=== PATIENT | female | born 1940 | race Caucasian/White ===

== ENCOUNTER 2016-09-27 15:22 | Emergency (ER) | payer OTHER, MEDICARE ==
[~2016-09-27] VITALS: Ht 160 cm; Wt 84.9 kg
[~2016-09-27 15:22] MED LIST: ASPEC81 PO; LEVO100T48; LISI1TAB3 PO; MULT-506 PO; OXYC-57 PO
[2016-09-27 15:24] VITALS: TEMP 36.6; Ht 160 cm; Wt 84.9 kg
[2016-09-27] MEDS ORDERED: ACETAMINOPHEN 500 MG TAB PO STA (15:43)
--- NOTE | 2016-09-27 16:15 | DIAGNOSTIC IMAGING REPORT ---
RIGHT SHOULDER MIN 2 VIEWS ROUTINE CLINICAL HISTORY: Right shoulder and arm pain following fall. COMPARISON: None FINDINGS: Alignment of the right acromioclavicular and glenohumeral joints is anatomic. There is a partially visualized oblique mildly displaced fracture of the midshaft of the right humerus that is displaced 7 mm. Right axilla surgical clips are noted. IMPRESSION: Acute mildly displaced oblique fracture of the proximal to mid shaft of the right humerus. Electronically signed by: Callum Shah M.D. 09/27/2016 4:13 PM Dictated Date/Time: 09/27/2016 4:12 PM
--- NOTE | 2016-09-27 16:16 | DIAGNOSTIC IMAGING REPORT ---
RIGHT HUMERUS MIN 2 VIEWS ROUTINE CLINICAL HISTORY: Right upper arm pain following fall. COMPARISON: None FINDINGS: There is an acute mildly displaced fracture of the proximal to mid shaft of the right humerus. No additional fractures are identified. There are right axillary/breast surgical clips. IMPRESSION: Acute mildly displaced oblique fracture of the proximal to mid shaft of the right humerus. Electronically signed by: Callum Shah M.D. 09/27/2016 4:14 PM Dictated Date/Time: 09/27/2016 4:13 PM
[2016-09-27] MEDS ORDERED: CHOL2000 PO (16:40)
[2016-09-27] MEDS ORDERED: LEVO100T7 PO (16:40)
[2016-09-27] MEDS ORDERED: LISI1TAB3 PO (16:40)
[2016-09-27] MEDS ORDERED: B-COTAB18 PO (16:40)
[2016-09-27] MEDS ORDERED: GLUCTAB7 PO (16:40)
[2016-09-27] MEDS ORDERED: ACET1TAB84 PO (16:40)
[2016-09-27] MEDS ORDERED: MULT-845 PO (16:40)
[2016-09-27] MEDS ORDERED: OXYC-57 PO (16:45)
[2016-09-27 17:29] VITALS: BP 137/78; PULSE 78; O2SAT 92
--- NOTE | 2016-09-28 16:31 | EMERGENCY ROOM VISIT NOTE ---
ED Visit Note First contact with patient: 15:27 I have personally seen and evaluated the patient with the PA. I agree with the diagnosis and management decisions and have been personally involved in the case. Please see Michael Francis PA-C's notes for further details of the history, physical and visit.
--- NOTE | 2016-09-30 06:17 | EMERGENCY ROOM VISIT NOTE ---
ED Visit Note First contact with patient: 15:27 Chief Complaint: I think I broke my right upper arm. History of Present Illness: Ms. Perdomo is a 76-year-old white female who ambulates into the ED accompanied by her complaining of right humerus pain. Patient reports approximate 30 minutes ago she was using a sweeper to clean her floor. She reports she fell over the sweeper and onto her right humerus. She reports at the time of the fall she did feel and heard a snapping sensation of the humerus. Since that time she reports she is having mid pain. She does report before the fall she was not having any lightheadedness or dizziness, the time of the fall she did not strike her head or have loss of consciousness and since the injury she has had no signs of head injury. Currently she is complaining of a sharp pain over the mid right humerus area. She rates this discomfort 3/10. The pain is nonradiating. The pain worsens with palpation, all movements of the shoulder and all movements of the elbow and forearm. She has not identified any alleviating factors related to the pain. Associated with the pain she does report she has an achy sensation over the humeral head. She denies any associated neck and back pain, chest pain, shortness of breath, abdominal pain, nausea, vomiting, right upper extremity weakness/numbness/tingling. She also denies any previous significant injuries or surgeries to the right upper extremity. Review of Systems: As noted above in history of present illness. Past Medical History: Hypothyroidism, hypertension. Current Medications: Medications Dose Route/Sig Max Daily Dose Days Date Category Dose Instructions Vitamin B Complex (B-Complex Vitamins) 1 Tab Tab 1 Tab PO DAILY 09/27/16 Reported Centrum Silver Adult 50+ (Multiple Vitamins W/ Minerals) 1 Tab Tab 1 Tab PO DAILY 09/27/16 Reported Vitamin D3 (Cholecalciferol) 2,000 Unit Cap 2,000 Inter.unit PO DAILY 09/27/16 Reported Glucosamine Chondroitin (Bwdyzbfsrgm-Nfjvockklju-Ubk C-) 1 Tab Tab 1 Tab PO DAILY 09/27/16 Reported Tylenol Arthritis Ext Rel (Acetaminophen) 650 Mg Cplt 650 Mg PO HS 09/27/16 Reported Levothyroxine Sodium 100 Mcg Tab 100 Mcg PO DAILY 09/27/16 Reported Zestril (Lisinopril) 30 Mg Tab 30 Mg PO DAILY 09/27/16 Reported Allergies to Medications: Clindamycin, levofloxacin. Social History: Patient is currently retired; she lives with her and feels safe in her home environment; he denies tobacco use. Physical Examination: Vital Signs: Date Time Temp Pulse Resp B/P Pulse Ox O2 Delivery O2 Flow Rate FiO2 09/27/16 17:29 78 18 91/50 92 Room Air 137/78 09/27/16 15:24 36.6 87 16 104/69 97 GENERAL: 76-year-old female in mild distress due to pain, nontoxic-appearing, afebrile and hemodynamically stable. NEUROLOGICAL: Awake, alert and oriented to person, place and time. Answering questions appropriately and following commands. Normal gait. No focal motor sensory deficits. SKIN: Warm, dry and pink. No soft tissue trauma noted. HEENT: Atraumatic and normocephalic. BACK: No tenderness over the bony cervical and thoracic spine. THORAX: Lungs sounds are clear to auscultation and equal bilaterally with symmetrical chest wall. No crepitus, tenderness, subcutaneous air or deformities noted. RIGHT UPPER EXTREMITY: No gross bony deformity. No tenderness over the humeral head, clavicle or scapula. Moderate tenderness in the mid humeral area associated with mild swelling but no ecchymosis. No tenderness throughout the elbow or forearm. Range of motion was deferred. She was able to distinguish light sensations through all dermatomes of the arm. Distal pulses and capillary refill is brisk. ED Course: Patient is assessed as noted above. Patient was offered pain medication and requested 1 g of Tylenol by mouth. Right Humerus X-Rays: Were read by myself and the radiologist showing acutely mildly displaced fracture of the proximal to mid shaft of the right humerus. Right Shoulder X-Rays: Were read by myself and shows proper alignment of the right acromioclavicular and glenohumeral joints. Patient was placed in an Ortho-Glass splint and sling. Patient's case was reviewed with Dr. Hull; she independently assessed the patient where agreed on diagnostic approach, treatment, disposition and plan. Patient was educated about tonight's findings and instructed on her treatment plan; she verbalizes understanding and agreement with this plan. Clinical Impression: Right humerus fracture. Disposition: Patient discharged home in stable condition accompanied by her ; prior to departure she was reassessed and subjectively rated her discomfort 4/10. Plan: Comfort measures including rest, splint and sling use, ice and a sliding pain medication scale of ibuprofen, acetaminophen and Percocet were discussed with the patient. Patient was encouraged to follow-up with Dr. Haro's office for definitive care and treatment. Patient was encouraged return the ED for worsening/uncontrolled pain, arm weakness/numbness/tingling or any new/concerning symptoms.
== END 2016-09-27 17:29 | disposition home or self-care (01) ==
LOC: C.EDB 15:24 → C.EDD 17:29
DX: S42.291A Other displaced fracture of upper end of right humerus, initial encounter for closed fracture (principal); E03.9 Hypothyroidism, unspecified; I10 Essential (primary) hypertension; W01.0XXA Fall on same level from slipping, tripping and stumbling without subsequent striking against object, initial encounter; Y93.E5 Activity, floor mopping and cleaning; Y92.019 Unspecified place in single-family (private) house as the place of occurrence of the external cause; Y99.8 Other external cause status

== ENCOUNTER 2017-11-05 08:28 | Inpatient (IN) | payer OTHER, MEDICARE ==
[2017-10-16 09:51] VITALS: BMI 31.0
--- NOTE | 2017-10-16 10:04 | PAT Medication Instructions ---
Service Date Oct 16, 2017. Current Home Medication List Acetaminophen (Tylenol Arthritis Ext Rel), 650 MG PO HS Acetaminophen (Tylenol), 325 MG PO HS B-Complex Vitamins (Vitamin B Complex), 1 TAB PO NOON Calcium Carbonate (Tums), 1 TAB PO HS Cholecalciferol (Vitamin D3), 2,000 INTER.UNIT PO NOON Tfvayfmtrok-Zvzggqmbetp-Bvn C- (Glucosamine Chondroitin), 1 TAB PO HS Levothyroxine Sodium (Levothyroxine Sodium), 100 MCG PO QAM Lisinopril (Zestril), 30 MG PO QAM Multiple Vitamins W/ Minerals (Centrum Silver Adult 50+), 1 TAB PO NOON Probiotic Product (Probiotic), 1 TAB PO QAM Medication Instructions For Your Scheduled Surgery - Hold the following medications 2 weeks prior to surgery: Fxjxjcwowco-Cjnftolfxfu-Pha C- (Glucosamine Chondroitin), 1 TAB PO HS - Hold the following medications the morning of surgery: Probiotic Product (Probiotic), 1 TAB PO QAM Lisinopril (Zestril), 30 MG PO QAM - Take the following medications the morning of surgery with a sip of water: Levothyroxine Sodium (Levothyroxine Sodium), 100 MCG PO QAM - Take the following medications as scheduled the night/afternoon before surgery : Calcium Carbonate (Tums), 1 TAB PO HS Acetaminophen (Tylenol Arthritis Ext Rel), 650 MG PO HS Acetaminophen (Tylenol), 325 MG PO HS B-Complex Vitamins (Vitamin B Complex), 1 TAB PO NOON Cholecalciferol (Vitamin D3), 2,000 INTER.UNIT PO NOON Multiple Vitamins W/ Minerals (Centrum Silver Adult 50+), 1 TAB PO NOON If you have any questions please call us at [phone] or [phone] or [phone]
--- NOTE | 2017-10-16 11:00 | DIAGNOSTIC IMAGING REPORT ---
CHEST 2 VIEWS ROUTINE CLINICAL HISTORY: 77 years-old Female presenting with preoperative assessment. TECHNIQUE: PA and lateral views of the chest were obtained. COMPARISON: 11/29/2007. FINDINGS: Surgical clips noted in the bilateral axillae. Atherosclerosis of the aortic arch. Tortuosity of the descending thoracic aorta. Cardiac silhouette normal in size. Lungs and pleural spaces clear. Degenerative changes of the thoracic spine. Mildly exaggerated thoracic kyphosis without a focal compression deformity. Upper abdomen normal. IMPRESSION: 1. No acute cardiopulmonary disease. Electronically signed by: Mynor Padilla M.D. 10/16/2017 10:58 AM Dictated Date/Time: 10/16/2017 10:57 AM
[2017-10-16 11:07] LABS: BASO % 0.3 %; BASO ABS # 0.02 K/uL (0-0.2); EOS % 1.7 %; HEMATOCRIT 37.2 % (37-47); HEMOGLOBIN 12.2 g/dL (12.0-16.0); LYMPH % 23.4 %; LYMPH ABS # 1.38 K/uL (1.2-3.4); MEAN CELL VOLUME 94.4 fL (80-100); MEAN CORPUSCULAR HGB CONC 32.8 g/dl (32-36); MEAN PLATELET VOLUME 10.1 fL (7.4-10.4); MONO ABS # 0.47 K/uL (0.11-0.59); NEUT % 66.6 %; NEUT ABS # 3.92 K/uL (1.4-6.5); PLATELET COUNT 254 K/uL (130-400); RED CELL DISTRIBUTION WIDTH CV 13.8 % (11.5-14.5); RED CELL DISTRIBUTION WIDTH SD 47.8 fL (36.4-46.3); WHITE BLOOD COUNT 5.89 K/uL (4.8-10.8)
[2017-10-16 11:19] LABS: CALCIUM 9.3 mg/dl (8.5-10.1); CREATININE 0.81 mg/dl (0.60-1.20); POTASSIUM 4.3 mmol/L (3.5-5.1)
--- NOTE | 2017-11-02 23:16 | HISTORY & PHYSICAL EXAMINATION ---
DATE OF ADMISSION: 11/05/2017 CHIEF COMPLAINT: Bilateral knee pain and discomfort, left side greater than right. HISTORY OF PRESENT ILLNESS: A 77-year-old white female who presents for surgical treatment of her left knee. She has got a long history of bilateral knee pain and discomfort, left side greater than right. She has become more and more debilitated by knee pain over time. The shots really did not help her recently. Pain is mostly medial. There is swelling as the day goes on. Her knee gives out intermittently as well. The more she walks, the more it hurts. She would like to proceed with surgical treatment. PAST MEDICAL HISTORY: Includes: 1. Sleep apnea. 2. Hypertension. 3. Heart murmur. 4. Hypothyroidism. 5. Gastroesophageal reflux disease. 6. Mild obesity with BMI of 31. 7. Status post breast cancer surgical treatment without recurrence. 8. Parotid gland surgery. PREVIOUS SURGERIES: Include: 1. Hysterectomy. 2. Cystocele, rectocele repair. 3. Right parotid gland removal. 4. Bilateral mastectomies. ALLERGIES: TAPE, CLINDAMYCIN, LEVAQUIN. CURRENT MEDICINES: Include: 1. Levothyroxine 0.1 mg a day. 2. Lisinopril 30 mg a day. 3. Tums. 4. Glucosamine and chondroitin. 5. Multivitamin. 6. Vitamin D. 7. Tylenol Arthritis. 8. B complex. 9. Probiotics. SOCIAL HISTORY: A 77-year-old female. She is . Does not smoke. FAMILY HISTORY: Negative for diabetes, heart disease or blood clots. REVIEW OF SYSTEMS: Negative for diabetes. Denies any chest pain, no shortness of breath. No evidence of DVT or PE. No known bleeding problems. PHYSICAL EXAMINATION: GENERAL: Reveals a healthy, pleasant elderly female, looks to be in good health. HEENT: Benign. NECK: Supple. No lymphadenopathy. LUNGS: Clear to auscultation. HEART: Regular rate and rhythm. ABDOMEN: Soft, nontender, nondistended. EXTREMITIES: Grossly neurovascularly intact except as follows: Examination of the left knee reveals the patient ambulates with a slight bit of a limp. She has got slight varus alignment to her knee. She is tender over the medial joint line. Range of motion is 5 to 120. No instability. No pain with hip motion. X-RAYS: X-rays of the left knee were reviewed, show advanced medial compartment DJD. She has complete loss of medial joint space. She has got osteophytes off the medial femoral condyle and medial tibial plateau. She has subchondral sclerosis. She has advanced arthritis in the right knee as well. ASSESSMENT: A 77-year-old white female with advanced bilateral knee degenerative joint disease, unresponsive to conservative treatment. Her left knee is bothering more than the right and she would like to have her left knee replaced. PLAN: We will take her to the operating room and do left total knee replacement. The risks and benefits of this procedure were explained to the patient including but not limited to DVT, PE, , infection, neurological injury, vascular injury, bleeding problems, pain, limited range of motion, stiffness, failure to relieve symptoms, incomplete relief of symptoms, need for further surgery in the future, need for blood transfusion, etc. The patient understands and desires to proceed. Informed consent was obtained. We did talk to her about holding her lisinopril the morning of surgery. She is going to be discharged to home with her 's assistance to the [facility] home health program.
[2017-11-05] VITALS (10 sets, daily range): BP systolic 110–168; BP diastolic 61–90; PULSE 65–81; TEMP 36.3–36.7; O2SAT 93–100; Ht 160 cm; Wt 79.5 kg
[~2017-11-05] VITALS: Ht 160 cm; Wt 79.5 kg
[~2017-11-05 08:28] MED LIST changes: +ACET-1311 PO; +ACET1TAB84 PO; +ACETAMINOPHEN 500 MG TAB PO SCH; -ASPEC81 PO; +ATROPINE SULFATE 0.1 MG/ML 5ML SYR IV PRN; +B-COTAB18 PO; +BUPIVACAINE 0.5 % 5 MG/1 ML PF 10ML VIAL ONE; +CALC500C3 PO; +CEFAZOLIN 2000MG IV PUSH 15 ML IV SCH; +CHOL2000 PO; +EpHEDrine SULFATE INJ 50 MG/ML AMP IV PRN; +FAMOTIDINE 20 MG TAB PO SCH; +GABAPENTIN 300 MG CAP PO SCH; +GLUCTAB7 PO; +HYDROmorphone INJ 2 MG/ML SYR/VIAL IV PRN; +LACTATED RINGER'S 1000ML 1,000 ML IV SCH; +LACTATED RINGER'S 1000ML IV SCH; -LEVO100T48; +LEVO100T7 PO; +METOCLOPRAMIDE HCL 10 MG TAB PO SCH; +MISCCAP80 PO; -MULT-506 PO; +MULT-845 PO; +ONDANSETRON INJ 2 MG/ML 2 ML VIAL IV PRN; -OXYC-57 PO; +PHENYLEPHRINE 100MCG/ML 5ML SYR IV PRN; +ROPIVACAINE 0.5% 5 MG/ML 30 ML VIAL ONE; +TRANEXAMIC ACID INJ 1,000 MG x 2 Bags IV SCH
--- NOTE | 2017-11-05 08:55 | History & Physical Bridge Note ---
H&P Re-Evaluation Bridge Note: I have examined the patient, reviewed the History & Physical and in the interval since the performance of the History & Physical I have noted the following changes of clinical significance: No changes noted
[2017-11-05] MEDS ORDERED: MIDAZOLAM HCL 1 MG/ML 2ML VIAL ONE ×2 (09:50)
[2017-11-05] MEDS ORDERED: SODIUM CHLORIDE 0.9% PF 50 ML VIAL ONE (11:24)
[2017-11-05] MEDS ORDERED: BACITRACIN 50000 UNIT VIAL ONE (11:24)
[2017-11-05] MEDS ORDERED: BUPIVACAINE LIPOSOME 1/3% 266 MG/20 ML VIAL INFIL ONE (11:24)
[2017-11-05] MEDS ORDERED: BUPIVACAINE 0.25% 30 ML VIAL ONE (11:26)
[2017-11-05] MEDS ORDERED: PROPOFOL IV EMULSION 10 MG/ML 20 ML VIAL IV ONE ×2 (12:27→12:35)
[2017-11-05] MEDS: BUPIVACAINE LIPOSOME 266 MG, BUPIVACAINE/EPINEPHRINE INJ 50 ML, SODIUM CHLORIDE 0.9% PF... INFIL SCH ×6 (12:50→17:13)
[2017-11-05] MEDS ORDERED: EpINEphrine HCL INJ 1 MG/ML 1ML SYRINGE IV ONE (12:51)
--- NOTE | 2017-11-05 13:18 | [facility] Post Operative Brief Note ---
Immediate Operative Summary Operative Date Nov 05, 2017. Pre-Operative Diagnosis Left Knee Degenerative Joint Disease Post-Operative Diagnosis Same as preop Procedure(s) Performed Left Total Knee Arthroplasty Surgeon Dr. Haro Paid Search Marketing Strategist Surgeon(s) Wei Albarran PA-C Estimated Blood Loss 50 ml Findings Consistent with Post-Op Diagnosis Fluids (cc crystalloids) 1300 cc Specimens A. Left Knee Bone and Tissue Drains None Anesthesia Type MAC Spinal Regional Complication(s) none Disposition Accompanied Pt To Recover: no Disposition: Recovery Room / PACU
[2017-11-05] MEDS ORDERED: ONDANSETRON INJ 2 MG/ML 2 ML VIAL IV PRN (13:30)
[2017-11-05] MEDS ORDERED: ZOLPIDEM TARTRATE 5 MG TAB PO PRN (13:30)
[2017-11-05] MEDS ORDERED: MAGNESIUM HYDROXIDE SUSP 30 ML UDC PO PRN (13:30)
[2017-11-05] MEDS ORDERED: METOCLOPRAMIDE HCL INJ 5 MG/ML 2 ML VIAL IV PRN (13:30)
[2017-11-05] MEDS ORDERED: ALUMINUM/MAGNESIUM/SIMETH (MAALOX MAX) 30 ML UDC PO PRN (13:30)
[2017-11-05] MEDS ORDERED: SILVER SULFADIAZINE 1% CR 50 GM JAR EXT PRN (13:30)
[2017-11-05] MEDS ORDERED: CEFAZOLIN IV 1,000 MG in DEXTROSE 5% 50ML 50 ML IV SCH (13:30)
[2017-11-05] MEDS ORDERED: HYDROmorphone INJ 0.5 MG/0.5 ML SYR IV PRN (13:30)
[2017-11-05] MEDS ORDERED: BISACODYL 10 MG SUPP PR PRN (13:30)
--- NOTE | 2017-11-05 13:47 | Anesthesiology Progress Note ---
Anesthesia Post Op Note Date & Time Nov 05, 2017 at 13:46 Vital Signs Pain Intensity: 0 Vital Signs Past 12 Hours Date Time Temp Pulse Resp B/P (MAP) Pulse Ox O2 Delivery O2 Flow Rate FiO2 11/05/17 13:22 36.4 72 16 106/78 100 Nasal Cannula 3 11/05/17 09:33 36.7 75 18 157/81 97 Room Air Notes Mental Status: alert / awake / arousable, participated in evaluation Pt Amnestic to Procedure: Yes Nausea / Vomiting: adequately controlled Pain: adequately controlled Airway Patency, RR, SpO2: stable & adequate BP & HR: stable & adequate Hydration State: stable & adequate Anesthetic Complications: no major complications apparent
--- NOTE | 2017-11-05 14:09 | DIAGNOSTIC IMAGING REPORT ---
L KNEE 1 OR 2 VIEWS ROUTINE HISTORY: 77 years-old Female AP/LATERAL IN PACU LEFT KNEE status post left knee total joint arthroplasty. Degenerative joint disease. COMPARISON: Left knee radiographs 09/30/2017 TECHNIQUE: Portable AP crosstable lateral views of the left knee FINDINGS: Postoperative changes from recent left knee total joint arthroplasty and patella resurfacing. Alignment is satisfactory without periprosthetic fracture. No retained foreign body identified. Anterior midline skin mojgan are noted along with a surgical drain and expected postsurgical soft tissue swelling and deep tissue air. IMPRESSION: Left knee total joint arthroplasty and patellar resurfacing without complication identified. The above report was generated using voice recognition software. It may contain grammatical, syntax or spelling errors. Electronically signed by: Steven Monson M.D. 11/05/2017 2:08 PM Dictated Date/Time: 11/05/2017 2:07 PM
[2017-11-05] MEDS: D5W AND 1/2NSS + 20MEQ KCL 1,000 ML IV SCH (15:50)
[2017-11-05] MEDS: KETOROLAC TROMETHAMINE 15 MG/ML VIAL IV. SCH ×2 (15:51→21:19)
[2017-11-05] MEDS: TRAMADOL HCL 50 MG TAB PO PRN (17:41)
--- NOTE | 2017-11-05 17:42 | PROGRESS NOTE ---
DATE: 11/05/2017 SUBJECTIVE: A 77-year-old white female postop from a left knee replacement. She is doing pretty well. Really just starting to get the feeling back in her legs. No chest pain or shortness of breath. Not feeling dizzy or lightheaded. OBJECTIVE: VITAL SIGNS: Temperature is 36.4. Vital signs stable. GENERAL: Reveals a pleasant elderly female. She is sitting up in bed and talking to her . Looks pretty comfortable. LUNGS: Clear to auscultation. HEART: Has regular rate and rhythm. ABDOMEN: Soft, nontender, nondistended. EXTREMITIES: Grossly neurovascularly intact except as follows: Examination of the left lower extremity reveals the leg to be well aligned. Dressing is clean, dry and intact. She can dorsiflex and plantarflex her foot appropriately. She is neurologically intact. IMAGING DATA: X-rays of the left knee from recovery room reviewed. It shows a left cemented posterior stabilized total knee arthroplasty. Components looked to be in good position. No signs of problems. ASSESSMENT: A 77-year-old white female postop from a left knee replacement, doing well. Pain is controlled. She is neurologically intact. PLAN: 1. DVT prophylaxis including thigh-high TEDs, SCDs, and aspirin twice a day. 2. PT/OT. Weightbear as tolerated. Left total knee protocol. 3. Pain control, doing well with current pain regimen. 4. IV antibiotics x24 hours. 5. Disposition: Plan to discharge to home with some home health once adequately recovered.
[2017-11-05] MEDS: FERROUS GLUCONATE 324 MG TAB PO SCH (18:04)
[2017-11-05] MEDS: ACETAMINOPHEN 500 MG TAB PO SCH (18:05)
--- NOTE | 2017-11-05 18:20 | OPERATIVE REPORT ---
DATE OF OPERATION: 11/05/2017 SURGEON: Joe Haro MD SAFETY LEAD: JARAD Jack PREOPERATIVE DIAGNOSIS: Left knee degenerative joint disease. POSTOPERATIVE DIAGNOSIS: Same. PROCEDURE PERFORMED: Left cemented posterior stabilized total knee arthroplasty. COMPLICATIONS: None. ESTIMATED BLOOD LOSS: 50 mL. FLUID REPLACEMENT: 1300 mL crystalloid fluid replacement. TOURNIQUET TIME: Fifty four minutes at 300 mmHg. ANESTHESIA: Spinal with adductor canal block. DRAINS: None. SPECIMENS: Left knee sent for pathology. OPERATIVE INDICATIONS: The patient is a 77-year-old female who has had a fairly long history of bilateral knee pain and discomfort, left side greater than right. She has been through extensive conservative treatment without adequate relief. X-ray show advanced left knee DJD. She elected to do a total knee arthroplasty. OPERATIVE FINDINGS: Revealed advanced left knee DJD. She had extensive grade 4 changes in the medial femoral condyle and medial tibial plateau. She had spotty grade 4 changes of the patellofemoral joint. The lateral compartment was pretty well preserved. Moderate size joint effusion. OPERATIVE IMPLANTS: Operative implants consists of: 1. Biomet Vanguard size 62.5 left posterior stabilized femoral component. 2. Biomet size 67 tibial tray. 3. A 10 mm posterior stabilized polyethylene insert. 4. A 31 x 8 all poly patella. OPERATIVE PROCEDURE: The patient taken to the operating room, identified and placed on operative table in supine position. All contact areas were appropriately padded. IV antibiotics were provided by the anesthesia team. A spinal anesthetic and adductor canal block had provided in the holding area. A Maldonado catheter was placed in sterile fashion. A left thigh tourniquet was then placed and left lower extremity was then prepped and draped in usual sterile fashion. The left leg was elevated and exsanguinated and Esmarch tourniquet placed at 300 mmHg. An anterior approach of the left knee was then performed through a longitudinal incision centered over the patella. Sharp dissection was carried through the subcutaneous tissues down to the level of the extensor mechanism. Medial parapatellar arthrotomy incision was made. Some subperiosteal dissection was carried out medially. The fat pad was dissected from beneath the patellar tendon. Lateral patellofemoral ligament was released. Patella was everted and knee was flexed. The osteophytes were taken off the distal femur. The ACL and PCL were then released from the distal femur and the tibia subluxated anteriorly. The external tibial alignment jig was then placed in the anterior face of the tibia and adjusted 14 mm medially. Proximal tibial cut was made to remove about a millimeter of bone from the most deficient aspect of the medial tibial plateau. Some osteophytes were taken off medial and posteromedially. Tibia sized to a size 67. Attention was then drawn to the femur. The distal femur was entered with a sharp drill bit. Intramedullary canal was suctioned. A left 5 degree valgus cutting guide was placed and distal femoral cutting block was pinned in place. Distal femoral cut was made to take an additional 3 mm of bone off the distal femur. The femur was then sized to a size 62.5. We did downsize this slightly. The AP cutting block was pinned parallel to the epicondylar axis, which was 5 degrees of external rotation. The anterior cut, anterior chamfer, posterior cut, posterior chamfer cuts were made. Box cutting guide was placed and adjusted slightly lateral and box cut was made. The knee was flexed and the remnants of the medial menisci were excised. The osteophytes were taken off the posterior aspect of the femur. Trial femoral component was placed. Tibial tray was pinned in maximum external rotation and drill and stem punch were used to create defect in proximal tibia for the tibial tray. The knee was then trialed and the 10 mm insert fit most appropriately. Attention was then drawn to the patella. The patella was cleaned of all soft tissues. Patella thickness measured 22 mm in thickness and was cut down to 13. It was sized to a size 31 patella. Lug holes were drilled for a 31 patella. Lateral osteophyte was removed. Patella button was placed. Knee was taken through range of motion and patella tracked nicely with no thumbs test. Attention was then drawn toward placement of permanent components. All trial components were removed. A bone plug was placed in the distal femur to limit blood loss. A double batch of Palacos G cement was mixed. A left size 62.5 posterior stabilized femoral component, size 67 tibial tray, a 10 mm posterior stabilized polyethylene insert, and a 31 x 8 all poly patella cemented in place. Knee was brought into full extension until cement hardened. A final cement check was then performed. Pericapsular tissues were injected with a total of 100 mL of a combination of 20 mL of Exparel, 30 mL of normal saline, 50 mL of 0.25% Marcaine with epinephrine. The patient did receive 1 gram of tranexamic acid. The tourniquet was then let down for a tourniquet time of 54 minutes. Hemostasis was assured with use of cautery. The wound was once again irrigated. The extensor mechanism was then closed combination of #1 PDS suture and #1 Vicryl suture in [id number] fashion. Extensor mechanism was checked and found to be intact. The subcutaneous tissue was then closed with #2 Dexon suture in a buried interrupted fashion. Skin was closed skin mjogan. Leg was then cleaned and dried and a sterile dressing of Xeroform, 4 x 4, sterile cast padding and Matthew bandage were applied. The patient then transferred to the recovery room in stable condition. The patient tolerated the procedure well with no complications. All needle and sponge counts were correct at the end of the operation. I attest to the content of the Intraoperative Record and any orders documented therein. Any exception s are noted below.
[2017-11-05] MEDS ORDERED: TRANEXAMIC ACID INJ 1,000 MG in SODIUM CHLORIDE 0.9% 100ML 100 ML IV SCH (20:00)
[2017-11-05] MEDS: CEFAZOLIN IV 1,000 MG in SYRINGE 0 ML IV SCH (20:19)
[2017-11-05] MEDS: DOCUSATE SODIUM 100 MG CAP PO SCH (21:17)
[2017-11-05] MEDS: SENNA 8.6 MG TAB PO SCH (21:17)
[2017-11-05] MEDS: ASPIRIN 81 MG ECTAB PO SCH (21:17)
[2017-11-05] MEDS: CALCIUM CARBONATE 500 MG CHEWABLE PO SCH (21:17)
[2017-11-06] VITALS (7 sets, daily range): BP systolic 105–125; BP diastolic 62–75; PULSE 67–83; TEMP 36.4–37; O2SAT 94–96
[2017-11-06] MEDS: ACETAMINOPHEN 500 MG TAB PO SCH ×3 (01:25→18:10)
[2017-11-06] MEDS: D5W AND 1/2NSS + 20MEQ KCL 1,000 ML IV SCH ×2 (02:00→11:30)
[2017-11-06] MEDS: KETOROLAC TROMETHAMINE 15 MG/ML VIAL IV. SCH ×4 (03:35→22:01)
[2017-11-06] MEDS: CEFAZOLIN IV 1,000 MG in SYRINGE 0 ML IV SCH (03:35)
[2017-11-06 05:33] LABS: HEMATOCRIT 29.3 % (37-47); MEAN CELL VOLUME 92.7 fL (80-100); MEAN CORPUSCULAR HEMOGLOBIN 31.6 pg (25-34); MEAN CORPUSCULAR HGB CONC 34.1 g/dl (32-36); MEAN PLATELET VOLUME 9.7 fL (7.4-10.4); PLATELET COUNT 179 K/uL (130-400); RED CELL DISTRIBUTION WIDTH CV 13.4 % (11.5-14.5); RED CELL DISTRIBUTION WIDTH SD 45.4 fL (36.4-46.3); WHITE BLOOD COUNT 8.14 K/uL (4.8-10.8)
[2017-11-06] MEDS: LEVOTHYROXINE 100 MCG TAB PO SCH (05:44)
[2017-11-06 05:57] LABS: CALCIUM 8.3 mg/dl (8.5-10.1); CREATININE 0.89 mg/dl (0.60-1.20); POTASSIUM 4.8 mmol/L (3.5-5.1)
--- NOTE | 2017-11-06 07:55 | Anesthesiology Progress Note ---
Anesthesia Post Op Note Date & Time Nov 06, 2017 at 07:55 Vital Signs Pain Intensity: 1.0 Vital Signs Past 12 Hours Date Time Temp Pulse Resp B/P (MAP) Pulse Ox O2 Delivery O2 Flow Rate FiO2 11/06/17 07:52 36.7 68 18 122/62 (82) 96 Room Air 11/06/17 07:10 Room Air 11/06/17 03:30 36.4 67 15 105/63 (77) 96 Room Air 11/05/17 22:51 36.5 65 16 110/66 (81) 93 Room Air Notes Mental Status: alert / awake / arousable, participated in evaluation Pt Amnestic to Procedure: Yes Nausea / Vomiting: adequately controlled Pain: adequately controlled Airway Patency, RR, SpO2: stable & adequate BP & HR: stable & adequate Hydration State: stable & adequate Neuraxial Anesthesia: was administered, sensory block resolved Anesthetic Complications: no major complications apparent
[2017-11-06] MEDS: TRAMADOL HCL 50 MG TAB PO PRN ×3 (09:04→21:59)
[2017-11-06] MEDS: ASPIRIN 81 MG ECTAB PO SCH ×2 (09:05→21:58)
[2017-11-06] MEDS: LACTOBACILLUS ACIDOPHILUS (FLORANEX) TAB PO SCH (09:05)
[2017-11-06] MEDS: CEROVITE ADV FORMULA TAB PO SCH (09:05)
[2017-11-06] MEDS: PANTOprazole SOD 40 MG TAB PO SCH (09:06)
[2017-11-06] MEDS: MULTIVITAMIN TAB PO SCH (09:06)
[2017-11-06] MEDS: LISINOPRIL 10 MG TAB PO SCH (09:07)
[2017-11-06] MEDS: FERROUS GLUCONATE 324 MG TAB PO SCH ×3 (09:07→18:10)
[2017-11-06] MEDS: DOCUSATE SODIUM 100 MG CAP PO SCH ×2 (09:07→21:59)
[2017-11-06] MEDS ORDERED: VITAMIN B COMPLEX TAB PO SCH (12:00)
[2017-11-06] MEDS ORDERED: CHOLECALCIFEROL 1000 INTER.UNIT TAB PO SCH (12:00)
--- NOTE | 2017-11-06 20:21 | PROGRESS NOTE ---
DATE: 11/06/2017 SUBJECTIVE: This is a 77-year-old white female postop day #1 from a left knee replacement. She is doing pretty well. Intermittent periods of pretty significant pain. No chest pain or shortness of breath. Not feeling dizzy or lightheaded. OBJECTIVE: VITAL SIGNS: Temperature 37.0. Vital signs stable. GENERAL: Reveals a pleasant elderly female. She is lying in bed, looks pretty comfortable. EXTREMITIES: Examination of the left leg reveals the dressing to be clean, dry and intact. She can dorsiflex and plantarflex her foot appropriately. NEUROLOGICAL: She is neurologically intact. LABORATORY DATA: Hemoglobin 10.0, hematocrit 29.3. Electrolytes are stable. ASSESSMENT: A 77-year-old white female postop day #1 from a left knee replacement, doing well. Pain has been reasonably well controlled. PLAN: 1. DVT prophylaxis including thigh-high TEDs, SCDs, and aspirin twice a day. 2. PT/OT. Can weightbear as tolerated. Left total knee protocol. 3. Pain control, doing pretty well with current pain regimen. 4. Disposition: Plan to discharge to home with some home health likely tomorrow after therapy.
[2017-11-06] MEDS ORDERED: FRRG PO (22:22)
[2017-11-06] MEDS ORDERED: ULT50X PO (22:22)
[2017-11-06] MEDS ORDERED: ASPEC81 PO (22:22)
[2017-11-06] MEDS ORDERED: ACET-24 PO (22:22)
[2017-11-06] MEDS ORDERED: MELO15TA10 PO (22:22)
--- NOTE | 2017-11-06 22:25 | Discharge Instructions ---
Discharge Instructions Date of Service Nov 06, 2017. Admission Reason for Admission: Left Knee Degenerative Joint Disease, Knee Pain Discharge Discharge Diagnosis / Problem: Left Knee Replacement Discharge Goals Goal(s): Decrease discomfort, Improve function, Increase independence, Improve disease control, Therapeutic intervention Activity Recommendations Activity Limitations: per Instructions/Follow-up section Weightbearing Status: Left weightbearing . Instructions / Follow-Up Instructions / Follow-Up ACTIVITY RECOMMENDATIONS: Physical Therapy: * You will go to physical therapy three times each week for four to six weeks after your surgery in order to regain your knee range of motion and to retrain your knee to work properly. * It is just as important to make sure you are getting your knee perfectly straight as it is to regain your knee bend. * Taking a pain pill an hour before therapy can help you have a more productive and comfortable therapy session. Home Exercise: * You were shown a series of exercises (heel props, heel slides, etc.) in the hospital. Do these exercises three to four times each day including the exercises you were shown in physical therapy. Walking: * Get up and walk several times each day. For the first four weeks, try not to stand or walk for more than one hour at a time. If you do stand or walk for more than one hour, you will not hurt anything, but your knee and leg will likely swell. * As you feel comfortable, you may change from the walker or crutches to a cane and then to independent walking. MEDICATIONS: New Medicine: * You will likely be taking one or more of these medications: 1. Tramadol - A quick and shorter-acting pain medication. Take one to two tablets every four to six hours to lessen your pain. 2. Iron Sulfate - Take two times each day for the month after surgery to help you replace the blood lost during surgery. 3. Aspirin - Thins your blood to lessen the chance of forming a blood clot. * The most common side effects of pain medicine and iron are nausea and constipation. If nausea or constipation is too much of a problem or if you have any questions about your new medicines or doses, call [facility] at . We will try to help you manage these issues. VERY IMPORTANT TO READ AND REVIEW" Pain: * The immediate post-operative period after knee replacement surgery is often quite painful. * You are given a prescription for pain medicine. You should take it, as directed, when you need it, especially before physical therapy and before going to bed. Pain that interferes with sleep is very common and can last several months. * You will likely need pain medicine for the first four to six weeks. It will not stop all of the pain. The pain will lessen and as you feel better, you may change to milder pain medicine such as Tylenol. * The most common side effects of pain medicine are nausea and constipation, so don't take more than you need. SPECIAL CARE INSTRUCTIONS: TEDs/Elastic Stockings: * The white elastic stockings help limit swelling and prevent blood clots from forming in your legs. The more you wear them, the more they work. * Wear them for six weeks after knee replacement surgery and four weeks after partial knee replacement. Prevention of Infection: * Take antibiotics one hour before any dental cleaning, dental work, urological procedure, gastrointestinal procedure or any invasive surgery in order to prevent your new joint from getting infected. * You may get the antibiotics from the doctor performing the procedure or you may call our office at before and we will call in a prescription to the pharmacy of your choice. Things to Watch For: * Drainage from the incision site that occurs more than one week after your surgery. * Severely increased knee/leg pain or swelling. * Increased redness at the incision site. * Fever above 102 degrees Fahrenheit. * Unusual chest pain or shortness of breath. * Unusual pain or burning with urination. Call [facility] at with any of the above problems or if you have any questions about your medicines or recovery. FOLLOW UP VISIT: Make an appointment to see your doctor for approximately two weeks after surgery for a progress check and staple removal by calling the office at . Current Hospital Diet Patient's current hospital diet: Regular Diet Discharge Diet Recommended Diet: Regular Diet Procedures Procedures Performed: Left Total Knee Arthroplasty Pending Studies Studies pending at discharge: no Medical Emergencies . Who to Call and When: Medical Emergencies: If at any time you feel your situation is an emergency, please call [phone] immediately. . Non-Emergent Contact Non-Emergency issues call your: Surgeon . "Provider Documentation" section prepared by Joe Haro. . VTE Core Measure Inpt VTE Proph given/why not?: Other Anticoagulation, T.E.D. Stockings, SCD's
[2017-11-06] MEDS: SENNA 8.6 MG TAB PO SCH (23:10)
[2017-11-06] MEDS: CALCIUM CARBONATE 500 MG CHEWABLE PO SCH (23:10)
[2017-11-07] MEDS: ACETAMINOPHEN 500 MG TAB PO SCH ×2 (02:44→09:40)
[2017-11-07] MEDS: TRAMADOL HCL 50 MG TAB PO PRN ×2 (02:45→08:04)
[2017-11-07] MEDS: KETOROLAC TROMETHAMINE 15 MG/ML VIAL IV. SCH ×2 (03:49→09:47)
[2017-11-07 06:05] VITALS: BP 112/63; PULSE 73; TEMP 36.4; O2SAT 94
[2017-11-07] MEDS: LEVOTHYROXINE 100 MCG TAB PO SCH (06:27)
--- NOTE | 2017-11-07 07:43 | PROGRESS NOTE ---
DATE: 11/07/2017 SUBJECTIVE: A 77-year-old white female postop day #2 from a left knee replacement. She is doing pretty well. Pain seems to be improved some. Had a good night sleep. No chest pain or shortness of breath. OBJECTIVE: VITAL SIGNS: Temperature 36.4. Vital signs stable. GENERAL: Physical examination reveals a pleasant elderly female. She is lying in bed and looks comfortable. She is eating breakfast. EXTREMITIES: Examination of the left leg reveals the dressing to be clean, dry and intact. Calf is soft and supple. She is neurologically intact. ASSESSMENT: A 77-year-old white female postop day #2 from a left knee replacement, doing pretty well. Pain seems to be improving. PLAN: 1. DVT prophylaxis including thigh-high TEDs, SCDs, and aspirin twice a day. 2. PT/OT. Weightbear as tolerated. Left total knee protocol. 3. Pain control. Doing pretty well with current pain regimen. We are going to send her home taking some Mobic at her request. 4. Disposition: Plan to discharge to home with some home health.
[2017-11-07] MEDS: CEROVITE ADV FORMULA TAB PO SCH (08:04)
[2017-11-07] MEDS: MULTIVITAMIN TAB PO SCH (08:05)
[2017-11-07] MEDS: PANTOprazole SOD 40 MG TAB PO SCH (08:05)
[2017-11-07] MEDS: FERROUS GLUCONATE 324 MG TAB PO SCH (08:05)
[2017-11-07] MEDS: LACTOBACILLUS ACIDOPHILUS (FLORANEX) TAB PO SCH (08:06)
[2017-11-07] MEDS: LISINOPRIL 10 MG TAB PO SCH (08:08)
[2017-11-07] MEDS: DOCUSATE SODIUM 100 MG CAP PO SCH (09:38)
[2017-11-07] MEDS: ASPIRIN 81 MG ECTAB PO SCH (09:38)
[2017-11-07 10:29] VITALS: BP 112/63; PULSE 73; TEMP 36.4; O2SAT 94
== END 2017-11-07 13:11 | disposition home health service (06) | DRG 470 ==
LOC: C.ACU 08:28 → C.3E 08:50 → ENRESERV 13:54
PROVIDERS: ADMIT Orthopaedic Surgery Sports Medicine; ATTEND Orthopaedic Surgery Sports Medicine
PROC: 0SRD0J9 Replacement of Left Knee Joint with Synthetic Substitute, Cemented, Open Approach (ICD-10-PCS; principal; 2017-11-05 11:00)
DX: M17.0 Bilateral primary osteoarthritis of knee (principal); M21.162 Varus deformity, not elsewhere classified, left knee; M25.462 Effusion, left knee; I10 Essential (primary) hypertension; E03.9 Hypothyroidism, unspecified; K21.9 Gastro-esophageal reflux disease without esophagitis; R01.1 Cardiac murmur, unspecified; G47.30 Sleep apnea, unspecified; E66.9 Obesity, unspecified; Z68.31 Body mass index [BMI] 31.0-31.9, adult; Z79.899 Other long term (current) drug therapy; Z88.1 Allergy status to other antibiotic agents; Z91.048 Other nonmedicinal substance allergy status

== ENCOUNTER 2022-02-06 06:33 | Observation (INO) ==
--- NOTE | 2022-01-04 10:09 | PAT Medication Instructions ---
Medication Instructions Date of Service January 04, 2022 Home Medications Medication Instructions Recorded CPAP Machine #1 ea 05/12/19 amoxicillin 500 mg tablet 2,000 mg PO ONCE #4 tab 12/04/21 Ignacio Hose #1 ea 12/25/21 acetaminophen 650 mg tablet,extended release (Tylenol Arthritis Pain) 650 mg PO HS calcium carbonate 300 mg (750 mg) chewable tablet (Tums) 1 tab PO HS cholecalciferol (vitamin D3) 50 mcg (2,000 unit) tablet 2,000 unit PO 1200 lactobacillus combination no.4 3 billion cell capsule (Probiotic) 1 cap PO QAM levothyroxine 100 mcg tablet 100 mcg PO UD lisinopril 30 mg tablet 30 mg PO QAM Centrum Silver 1 tab PO 1200 vitamin B complex 1 tab PO 1200 loperamide 2 mg capsule (Imodium A-D) 1 mg PO 6XWK amoxicillin 500 mg tablet 2,000 mg PO ONCE psyllium husk 3.4 gram/5.4 gram oral powder (Metamucil) 1 tbsp PO QAM Continue as directed amoxicillin 500 mg tablet 2,000 mg PO ONCE (prior to dental procedures) DO NOT take the morning of surgery cholecalciferol (vitamin D3) 50 mcg (2,000 unit) tablet 2,000 unit PO 1200 lactobacillus combination no.4 3 billion cell capsule (Probiotic) 1 cap PO QAM lisinopril 30 mg tablet 30 mg PO QAM Centrum Silver 1 tab PO 1200 vitamin B complex 1 tab PO 1200 loperamide 2 mg capsule (Imodium A-D) 1 mg PO 6XWK psyllium husk 3.4 gram/5.4 gram oral powder (Metamucil) 1 tbsp PO QAM Take morning of surgery With a small sip of water, OTHERWISE NOTHING TO EAT OR DRINK AFTER MIDNIGHT: levothyroxine 100 mcg tablet 100 mcg PO UD Take evening before surgery acetaminophen 650 mg tablet,extended release (Tylenol Arthritis Pain) 650 mg PO HS calcium carbonate 300 mg (750 mg) chewable tablet (Tums) 1 tab PO HS Other Notes If you have any questions please call us at [phone] or [phone] or [phone] or [phone]
--- NOTE | 2022-01-08 09:14 | Anesthesiology Consultation ---
Date of Service January 08, 2022 Assessment & Plan (1) Encounter for pre-operative examination: - COVID screening: Per assessment on 01/03: No known COVID-19 positive contacts or current COVID-19 related symptoms. Travel screen negative. Patient vaccinated . Surgeon arranging preop COVID testing. Awaiting results. - S/P Left TKA (11/05/17): SAB at L3-L4 + PNB at [facility]. No major complications per post-op anesthesia progress note. Chart Review Chart Review: Acceptable Risk for Surgery and Patient seen in Pre Admission Testing Teaching & Discussion Pre-Anesthesia Teaching/Discussion Notes: Instructed NPO after midnight before surgery,except medications with 15 cc of water. Medication instructions provided according to the PAT guidelines. History Surgery Operation Date: 02/06/22 10:40 Proposed Procedures p Right Total Knee Arthroplasty - Joe Haro MD Height/Weight Height: 5 ft 2 in Weight: 81.4 kg Allergies Allergy/AdvReac Type Severity Reaction Status Date / Time levofloxacin Allergy Intermediate Rash Verified 01/03/22 11:35 adhesive Allergy Mild Skin Verified 01/08/22 08:49 blistering with tape (paper tape ok) clindamycin AdvReac Intermediate Extreme GI Verified 01/08/22 08:49 upset dial body wash Allergy Mild Rash Uncoded 01/03/22 11:35 Medications Home Medications Medication Instructions Recorded Confirmed Last Taken acetaminophen 650 mg 650 mg PO HS 10/24/18 01/03/22 02/06/21 tablet,extended release (Tylenol Arthritis Pain) calcium carbonate 300 mg (750 mg) 1 tab PO HS 10/24/18 01/03/22 02/06/21 chewable tablet (Tums) cholecalciferol (vitamin D3) 50 2,000 unit PO 1200 10/24/18 01/03/22 02/06/21 mcg (2,000 unit) tablet lactobacillus combination no.4 3 1 cap PO QAM 10/24/18 01/03/22 02/06/21 billion cell capsule (Probiotic) levothyroxine 100 mcg tablet 100 mcg PO UD 10/24/18 01/03/22 02/07/21 06:00 lisinopril 30 mg tablet 30 mg PO QAM 10/24/18 01/03/22 02/07/21 06:00 [id number] acid 0.4 1 tab PO 1200 10/24/18 01/03/22 02/06/21 mg-lycopene 300 mcg-lutein 250 mcg tablet (Centrum Silver) vitamin B complex 1 tab PO 1200 10/24/18 01/03/22 02/06/21 CPAP Machine #1 ea 05/12/19 11/14/21 Unknown loperamide 2 mg capsule (Imodium 1 mg PO 6XWK cap 10/17/21 01/03/22 Unknown A-D) amoxicillin 500 mg tablet 2,000 mg PO ONCE #4 tab 12/04/21 01/03/22 Unknown Ignacio Hose #1 ea 12/25/21 12/25/21 Unknown psyllium husk 3.4 gram/5.4 gram 1 tbsp PO QAM 01/03/22 01/03/22 Unknown oral powder (Metamucil) Past Medical History Medical History Acid reflux Rare Cystocele with uterine prolapse + pessary (was instructed not to wear DOS by surgeon) History of bilateral breast cancer 2009 s/p b/l mastectomy (no limb restriction) 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 HTN (hypertension) Hypothyroidism Intermittent diarrhea Obesity Right knee DJD Sleep apnea CPAP (compliant) Stress incontinence Exercise / Class Metabolic Activity III < 4 Walking/Shop/Light housework (one FS (no CP, occasional SOB)) Past Family History Family History Father Family history of reaction to anesthesia nausea/vomiting Family hx colonic polyps Sister Family hx colonic polyps Obstructive sleep apnea Past Surgical History Surgical History History of bilateral breast biopsy Malignant History of breast reconstruction History of cataract surgery R/L History of colonoscopy History of parotidectomy 1995 History of tooth extraction History of total abdominal hysterectomy and bilateral salpingo-oophorectomy History of total left knee replacement (TKR) Left TKA (11/05/17): SAB at L3-L4 + PNB at [facility]. No major complications per post-op anesthesia progress note. Hx of bilateral mastectomy Nausea and vomiting after administration of anesthetic agent Past Anesthesia History No Hx of Anesthesia Complications (except remote PONV (no issues with Left TKA)) and No Family Hx of Anesthesia Complications History of PONV No Hx of Motion Sickness and History of PONV (Remote) Social History Smoking Status: Never smoker Do You Dip or Chew Tobacco: No Hx Alcohol Use: No Hx Substance Use: No substance use type: does not use Review of Systems Patient denies chest pain, shortness of breath, fever, chills, cough, wheezing, palpitations. Physical Exam Vital Signs VITALS BP 123/73 P 69 TEMP 98.2 SP02 96%RA RESP 16 PHYSICAL Full cervical extension range of motion. Full TMJ range of motion. TMD 3 finger breaths Mallampati Score 2 Dentition: upper partial, several missing lower Lungs: clear throughout to auscultation Cardiac: regular rate and rhythm, I/ diastolic murmur Spine: normal Carotid arteries: negative bruit Extremities: no edema Lab Results Anesthesia Preop Results Results Anesthesia Widget: WBC 5.22 K/uL (4.8-10.8) 01/08/22 Hgb 11.6 g/dL (12.0-16.0) L 01/08/22 Hct 35.8 % (37-47) L 01/08/22 Plt 250 K/uL (130-400) 01/08/22 Na 141 mmol/L (136-145) 01/08/22 K 4.6 mmol/L (3.5-5.1) 01/08/22 Cl 105 mmol/L (98-107) 01/08/22 CO2 30 mmol/L (21-32) 01/08/22 BUN 20 mg/dl (6-23) 01/08/22 Creat 0.83 mg/dl (0.6-1.2) 01/08/22 Glucose Level 97 mg/dl (70-99(Fasting)) 01/08/22 PT 10.9 Seconds (9.0-12.0) 01/08/22 PTT 25.3 Seconds (21.0-31.0) 01/08/22 INR 1.0 (0.9-1.1) 01/08/22 Blood Type A Positive 01/08/22 Antibody Screen NEGATIVE 01/08/22 Testing Electrocardiogram Date: 01/08/22 Sinus rhythm with first-degree AV block. Low voltage QRS. No significant change compared to 10/16/2017 per case manager review. Chest X-Ray Date: 01/08/22 FINDINGS: The lungs are clear. Cardiac silhouette is normal in size. No pleural effusions. No pneumothorax. Mildly tortuous thoracic aorta, unchanged. Surgical clips noted within the bilateral breasts. Calcifications at the aortic knob. IMPRESSION: No acute process. Echocardiogram Date: 08/29/17 LVEF 65-69%. Grade 1 diastolic dysfunction. Mild AV sclerosis.
--- NOTE | 2022-02-03 10:53 | History and Physical Report ---
CHIEF COMPLAINT: Right knee pain and discomfort. HISTORY OF PRESENT ILLNESS: The patient is an 81-year-old female who is well known to me from a previous left knee replacement done 4 years ago. She has continued to be bothered by right knee pain and discomfort that has gradually gotten worse over time. She has good and bad days, but having more bad days than good days recently. She has got chronic global pain in the knee. It is a little increased in the medial side. It is increased with weightbearing. She has had injections, which provide some temporary relief. She has limited walking tolerance. She would like to have her knee fixed. Of note, the patient was scheduled for knee replacement in the past, but had to cancel due to COVID issues and then her daughter who has been through some recent cancer treatments. Of note, the patient has got a history of chronic bladder and bowel dysfunction. She has very frequent bowel movements. She is managed by Dr. Nelson. PAST MEDICAL HISTORY: 1. Hypertension. 2. Heart murmur. 3. Sleep apnea. 4. Hypothyroidism. 5. Obesity. 6. Parotid gland cancer. 7. Bilateral breast cancer. PAST SURGICAL HISTORY: Includes, 1. Left knee replacement done on 11/05/2017. 2. Bilateral breast biopsies and reconstruction. 3. Cataract surgery. 4. Parotid removal. 5. Oral surgery. 6. Hysterectomy. ALLERGIES: CLINDAMYCIN, LEVOFLOXACIN. CURRENT MEDICATIONS: Include, 1. Tylenol. 2. Amoxicillin. 3. Tums. 4. Vitamin D3. 5. Probiotics. 6. Levothyroxine. 7. Lisinopril. 8. Imodium. 9. Vitamin B complex. SOCIAL HISTORY: She is an 81-year-old female. She is . She does not smoke. No alcohol intake. FAMILY HISTORY: Noncontributory. REVIEW OF SYSTEMS: Negative for diabetes, neurologic problems, vascular problems, or bleeding disorders. No chest pain or shortness of breath. No history of DVT or PE. She does have problems with bladder and bowel incontinence. PHYSICAL EXAMINATION: GENERAL: Shows a pleasant, elderly female. Looks to be in reasonably good health. HEENT: Benign. NECK: Supple. No lymphadenopathy. LUNGS: Clear to auscultation. HEART: Regular rate and rhythm. ABDOMEN: Soft, nontender, nondistended. EXTREMITIES: Grossly neurovascularly intact except as follows: Examination of the right knee reveals the patient walks with a bit of a limp. She has got varus alignment to her knee. She has bony hypertrophy medially. Small knee effusion. Range of motion 5 to 120. No instability. Examination of the left knee reveals a well-healed incision. She has got anatomic alignment. Range of motion is 0 to 120. X-RAYS: X-rays of the right knee reveal advanced right knee degenerative joint disease. She has complete loss of medial joint space. She has got subchondral sclerosis. Her left knee replacement looks to be in good position without signs of problems. ASSESSMENT: An 81-year-old female with multiple medical comorbidities including hypertension, heart murmur, hypothyroidism, obesity, and history of breast and parotid gland cancer, now 4 years out from a left knee replacement with advanced right knee degenerative joint disease. She has failed conservative treatment. She would like to have her knee fixed. She had been scheduled several times in the past, but canceled for various reasons. She would now like to proceed. PLAN: We are going to proceed with right knee replacement. The risks and benefits of this procedure were explained to the patient to include, but not limited to, DVT, PE, , infection, neurological injury, vascular injury, bleeding problems, pain, limited range of motion, stiffness, failure to relieve her symptoms, incomplete relief of symptoms, need for further surgery in the future, etc. The patient understands and desires to proceed. Informed consent was obtained. She does have bladder and bowel issues and incontinence. She will hold on the Imodium preoperatively. She is more likely to have constipation after surgery. We will see how she is doing and we will place a Maldonado catheter due to her urinary incontinence at the time of surgery. She had trouble with her ROXANNE stockings and we wrote her a script for some custom ROXANNE stockings and hopefully they will fit her better. She is planning to be discharged to home with some home health and her 's assistance. Job ID: [id number] [facility]
[~2022-02-06 06:33] MED LIST changes: -ACET-1311 PO; -ACET1TAB84 PO; -ATROPINE SULFATE 0.1 MG/ML 5ML SYR IV PRN; -B-COTAB18 PO; -BUPIVACAINE 0.5 % 5 MG/1 ML PF 10ML VIAL ONE; +BUPIVACAINE LIPOSOME/PF 266 MG, BUPIVACAINE/EPINEPHRINE 50 ML, SODIUM CHLORIDE 0.9% 30 ... INFIL SCH; -CALC500C3 PO; -CEFAZOLIN 2000MG IV PUSH 15 ML IV SCH; -CHOL2000 PO; -EpHEDrine SULFATE INJ 50 MG/ML AMP IV PRN; -GABAPENTIN 300 MG CAP PO SCH; -GLUCTAB7 PO; -HYDROmorphone INJ 2 MG/ML SYR/VIAL IV PRN; -LACTATED RINGER'S 1000ML 1,000 ML IV SCH; -LACTATED RINGER'S 1000ML IV SCH; -LEVO100T7 PO; -LISI1TAB3 PO; +LR 500ML BOLUS, THEN 15ML/HR IV SCH; +LR 60ML/HR IV SCH; -METOCLOPRAMIDE HCL 10 MG TAB PO SCH; +METOCLOPRAMIDE HCL 10 MG TABLET PO SCH; -MISCCAP80 PO; -MULT-845 PO; -ONDANSETRON INJ 2 MG/ML 2 ML VIAL IV PRN; -PHENYLEPHRINE 100MCG/ML 5ML SYR IV PRN; -ROPIVACAINE 0.5% 5 MG/ML 30 ML VIAL ONE; +TRANEXAMIC ACID 1,000 MG **IV Intra-op IV SCH; -TRANEXAMIC ACID INJ 1,000 MG x 2 Bags IV SCH; +ceFAZolin 2000MG 2,000 MG/15 ML SYR IV SCH
[2022-02-06] MEDS ORDERED: BUPIVACAINE 0.5 % 5 MG/1 ML PF 10ML VIAL ONE (06:40)
[2022-02-06] MEDS ORDERED: ROPIVACAINE 0.5% 5 MG/ML 30 ML VIAL ONE (06:40)
--- NOTE | 2022-02-06 06:56 | History & Physical Bridge Note ---
Date of Service February 06, 2022 History & Physical Bridge Note I have examined the patient, reviewed the History & Physical and in the interval since the performance of the History & Physical I have noted the following changes of clinical significance: no changes noted
[2022-02-06] MEDS ORDERED: MIDAZOLAM HCL 1 MG/ML 2ML VIAL ONE (07:13)
[2022-02-06] MEDS ORDERED: ATROPINE SULFATE 0.1 MG/ML 10ML SYR IV PRN (08:43)
[2022-02-06] MEDS ORDERED: ePHEDrine sulfate 50 MG/ML AMP IV PRN (08:43)
[2022-02-06] MEDS ORDERED: fentaNYL citrate 100 MCG/2 ML VIAL IV PRN (08:43)
[2022-02-06] MEDS ORDERED: ONDANSETRON INJ 2 MG/ML 2 ML VIAL IV PRN ×2 (08:43→12:25)
[2022-02-06] MEDS ORDERED: SODIUM CHLORIDE 0.9% PF 50 ML VIAL ONE (08:54)
[2022-02-06] MEDS ORDERED: BUPIVACAINE/EPINEPHRINE 0.25% 1:200,000 30 ML VIAL ONE (08:54)
[2022-02-06] MEDS ORDERED: BUPIVACAINE LIPOSOME 1.3% 266 MG/20 ML VIAL ONE (08:54)
[2022-02-06] MEDS ORDERED: PROPOFOL IV EMULSION 10 MG/ML 20 ML VIAL IV ONE ×3 (09:28→09:53)
[2022-02-06] MEDS ORDERED: PHENYLEPHRINE HCL 10 MG/ML VIAL ONE (09:55)
--- NOTE | 2022-02-06 11:10 | Operative Report ---
PG Post Operative Report Pre & Post Diagnosis Operation Date: 02/06/22 08:50 Pre-Op Diagnosis: Osteoarthritis Knee Right Post-Op Diagnosis: Osteoarthritis Knee Right I identified the patient and participated in the time-out.: Yes Procedure Operation Date: 02/06/22 08:50 Actual Procedures p Right Total Knee Arthroplasty(Right) - Joe Haro MD Surgeon Jeo Haro MD Photograph Retoucher Wei Albarran PA-C Estimated Blood Loss 50 Findings Consistent with Post-Op Diagnosis Operative findings were advanced right knee DJD. She had extensive grade 4 [id number] disease of the medial compartment. She had some spotty grade 4 changes laterally and more extensive patellofemoral disease. She had a varus deformity to her knee with a moderate sized knee joint effusion. Fluids 1000 cc Specimens Right knee sent for pathology Anesthesia Type Spinal MAC Complications none Disposition Accompanied Patient To Recovery: No Indications Patient is an 81-year-old female with a long history of bilateral knee pain discomfort. She been through extensive conservative treatment over the years. She had a left knee replaced about 4 years ago and is done well from this. She continued be limited by right knee pain patient been scheduled for surgery multiple times but canceled due to multiple issues. She now presents for surgical treatment. Description of Procedure Operative implants consist of: 1 Biomet Vanguard size 62.5 right posterior stabilized femoral component. 2. Biomet size 63 tibial tray. 3. 10 mm posterior stabilized polyethylene insert. 4. 31 x 8 all polypatella. The patient was taken to the operating, identified, and placed on the operating table in the supine position. All contact areas were meticulously padded. A spinal anesthetic and abductor canal block had provided in the holding area. Maldonado catheter was placed in sterile fashion. Right thigh tent was then placed in the right lower extremities and prepped and draped in usual sterile fashion. Right leg was elevated exsanguinated with use of an Esmarch and the tourniquet was set at 300 mmHg. An anterior approach to the right knee was then performed to a longitudinal incision centered over the patella. Sharp dissection was carried through subcutaneous tissue down the extensor mechanism. A medial parapatellar arthrotomy incision was made. Some subperiosteal dissection carried out medially. The fat pad was resected beneath patella tendon. Lateral patellofemoral ligament was released. Patella subluxated laterally. The knee was flexed. The osteophytes were taken off distal femur. The ACL and PCL were then released from distal femur the tibia subluxated anteriorly. The external treatment line jig was then placed on the anterior face of the tibia and adjusted 14 mm medially. Proximal tibial cut was made remove about a millimeter of bone from the most deficient aspect medial tibial plateau. The tibia was then sized to a size 63. Attention drawn the femur. The distal femur examined the sharp drill. Intramedullary canal was suction. A right 5 degree valgus cutting guide was placed. The distal femoral cutting block was pinned in place. Distal femoral cut was made to take an additional 3 mm of bone off distal femur. The femur was then sized to a size 62.5. The AP cutting block was pinned parallel to the epicondylar axis which was 3 degrees of external rotation. Anterior cut, anterior chamfer, posterior cut, posterior chamfer cuts were made. The box cutting guide was placed in just slight lateral and the box cut was made. The knee was flexed. The remnants of the medial lateral menisci were excised. The osteophytes taken off the posterior aspect of femur. A trial femoral component was placed. The tibial tray was pinned in maximum external rotation and the drill and stem punch were used to create defect in proximal tibia for the tibial tray. Knee was then trialed and 10 mm insert fit most appropriately. Attention drawn the patella. The patella was cleaned of all soft tissues. Patella thickness measured 20 mm in thickness. This was cut down to 13. Was sized to a size 31 patella. The lug holes were drilled for 31 patella. The lateral osteophyte is moved. Patella button was placed. Knee was taken through range of motion and the patella tracked nicely with no thumbs test. Attention drawn to placing permanent components. All trial components were removed. The bone plug was placed in the distal femur limit blood loss. Double batch [place] G cement was mixed. Biomet Vanguard size 62.5 right posterior stabilized femoral component, a size 63 tibial tray, a 10 mm posterior stabilized polyethylene insert, and a 31 x 8 all polypatella then cemented in place. Knee was brought out into full extension until cement hardened. Final cement check was then performed. The pericapsular tissues were injected with total 100 cc of combination of 20 cc of Exparel, 30 cc normal saline, 50 cc of quarter percent Marcaine with epinephrine. Patient did receive 1 g tranexamic acid. The tourniquet was then let down for final turn time of 54 minutes. Hemostasis reduced electrocautery. Extensor mechanism then closed with combination 1 PDS suture #1 Vicryl suture in [id number] fashion. Extensor mechanism checked found to be intact with subcutaneous tissue then c losed with 2 Dexon suture in a buried interrupted fashion skin was closed skin mojgan. Leg was then cleaned and dried and sterile dressing composed of Xeroform, 4 x 4's, sterile ABD pad, sterile cast padding, Matthew bandage were applied. Patient then transferred to the recovery room in stable condition. Patient tolerated the procedure well and there were no complications. Wei Albarran, my physician kennel assistant, was present for the entire procedure. His assistance was essential and required for appropriate patient positioning, prepping and draping, surgical exposure, performing the technical details of the operation, placement the implants, closure of the wound, and placement of the sterile bandage. I attest to the content of the Intraoperative Record and any orders documented therein. Any exceptions are noted below.
--- NOTE | 2022-02-06 11:41 | XRay Report ---
XR knee RT 1 or 2V routine HISTORY: 81 years-old Female Surgical Post Op right knee total joint arthroplasty COMPARISON: Knee radiographs 12/25/2021 TECHNIQUE: 2 views of the right knee FINDINGS: Right knee total joint arthroplasty with patellar resurfacing. Anterior midline skin mojgan are note d along with expected postoperative soft tissue swelling with deep tissue air. No acute fracture, dis location or unexpected opaque foreign body. IMPRESSION: Right knee total joint arthroplasty with expected postoperative changes. ACT 112: Negative or not required by law. The above report was generated using voice recognition software. It may contain grammatical, syntax o r spelling errors. Electronically signed by: Chapito Monson M.D. 02/06/2022 11:39 AM
--- NOTE | 2022-02-06 12:05 | Anesthesiology Progress Note ---
Date of Service February 06, 2022 Anesthesia Post Procedure Vital Signs Vital Signs: Temp Pulse Resp BP Pulse Ox 02/06/22 12:00 75 14 102/68 97 02/06/22 11:50 75 14 111/50 L 98 02/06/22 11:40 97.2 F L 75 14 110/47 L 98 02/06/22 11:30 78 14 95/46 L 100 02/06/22 11:20 77 14 112/54 L 96 02/06/22 11:10 75 14 97/42 L 100 02/06/22 11:03 96.8 F L 73 14 104/47 L 98 02/06/22 07:16 98.2 F 72 16 134/69 94 Transfer of Care Handoff Completed per policy Notes Mental Status: alert / awake / arousable and participated in evaluation Patient Amnestic to Procedure: Yes Nausea / Vomiting: adequately controlled Pain: adequately controlled Airway Patency, RR, SpO2: stable & adequate BP & HR: stable & adequate Hydration State: stable & adequate Neuraxial Anesthesia: was administered and sensory block is resolving Anesthetic Complications: no major complications apparent and Pt Satisfied with anesthetic care
[2022-02-06] MEDS ORDERED: ALUMINUM/MAGNESIUM SUSP 30 ML UDC PO PRN (12:25)
[2022-02-06] MEDS ORDERED: NALOXONE HCL 0.4 MG/1 ML VIAL/CARP IV PRN (12:25)
[2022-02-06] MEDS ORDERED: HYDROmorphone INJ 0.5 MG/0.5 ML SYR IV PRN (12:25)
[2022-02-06] MEDS ORDERED: bisacodyL 10 MG SUPP PR PRN (12:25)
[2022-02-06] MEDS ORDERED: METOCLOPRAMIDE HCL INJ 5 MG/ML 2 ML VIAL IV PRN (12:25)
[2022-02-06] MEDS ORDERED: MAGNESIUM HYDROXIDE SUSP 30 ML UDC PO PRN (12:25)
[2022-02-06] MEDS: SODIUM CHLORIDE 0.9% 1000ML 1,000 ML IV SCH ×2 (12:48→22:15)
[2022-02-06] MEDS: KETOROLAC TROMETHAMINE 15 MG/ML VIAL IV SCH ×2 (14:21→20:00)
[2022-02-06] MEDS: ACETAMINOPHEN 500 MG TAB PO SCH ×2 (14:31→22:15)
[2022-02-06] MEDS ORDERED: TRANEXAMIC ACID / 0.7% NACL 1,000 MG/100 ML BAG IV SCH (17:00)
[2022-02-06] MEDS: oxyCODONE HCL IR 5 MG TAB (IMMEDIATE RELEASE) PO PRN (17:27)
[2022-02-06] MEDS: ASCORBIC ACID 500 MG TAB PO SCH (17:28)
[2022-02-06] MEDS: ceFAZolin 2000MG 2,000 MG/15 ML SYR IV SCH (17:29)
[2022-02-06] MEDS ORDERED: SENNA 8.6 MG TAB PO SCH (21:00)
[2022-02-06] MEDS ORDERED: CALCIUM CARBONATE 500 MG CHEWABLE TAB PO SCH (21:00)
[2022-02-06] MEDS: TAPENTADOL HCL ER 50 MG TABCR PO SCH (21:10)
[2022-02-06] MEDS: DOCUSATE SODIUM 100 MG CAP PO SCH (21:12)
[2022-02-06] MEDS: ASPIRIN 81 MG ECTAB PO SCH (21:12)
[2022-02-07] MEDS: ceFAZolin 2000MG 2,000 MG/15 ML SYR IV SCH (01:20)
[2022-02-07] MEDS: KETOROLAC TROMETHAMINE 15 MG/ML VIAL IV SCH ×2 (01:21→08:07)
[2022-02-07] MEDS: ACETAMINOPHEN 500 MG TAB PO SCH (05:33)
[2022-02-07] MEDS ORDERED: LEVOTHYROXINE SODIUM 100 MCG TABLET PO SCH (06:30)
[2022-02-07] MEDS ORDERED: dexAMETHasone 10 MG in SYRINGE 0 ML IV SCH (08:00)
[2022-02-07] MEDS: ASPIRIN 81 MG ECTAB PO SCH (08:07)
[2022-02-07] MEDS: ASCORBIC ACID 500 MG TAB PO SCH (08:08)
[2022-02-07] MEDS: DOCUSATE SODIUM 100 MG CAP PO SCH (08:09)
[2022-02-07] MEDS: TAPENTADOL HCL ER 50 MG TABCR PO SCH (08:19)
[2022-02-07] MEDS ORDERED: lisinopril 10 MG TAB PO SCH (09:00)
[2022-02-07] MEDS ORDERED: PSYLLIUM or GUAR GUM FIBER POWDER PACKET PO SCH (09:00)
[2022-02-07] MEDS ORDERED: MULTIVITAMIN TAB PO SCH (09:00)
[2022-02-07] MEDS ORDERED: ADVANCED PROBIOTIC 1250 MG CAPSULE PO SCH (09:00)
[2022-02-07 10:40] LABS: Hematocrit (blood only) 31.3 % (37-47); Hemoglobin 10.4 g/dL (12.0-16.0); Mean Corpuscular Hemoglobin 30.9 pg (25-34); Mean Corpuscular Hgb Conc 33.2 g/dL (32-36); Mean Corpuscular Volume 92.9 fL (80-100); Mean Platelet Volume 10.4 fL (7.4-10.4); Platelet Count 194 K/uL (130-400); Red Blood Count 3.37 M/uL (4.2-5.4); White Blood Count 8.91 K/uL (4.8-10.8)
[2022-02-07 11:00] LABS: BUN Creatinine Ratio 24.5 (10-20); Calcium 8.6 mg/dl (8.5-10.1); Creatinine Clr Calc Pharmacy 45.8 ml/min; Est GFR (African American) 62.7 ml/min; Est GFR (Non-African American) 54.1 ml/min; Potassium 4.4 mmol/L (3.5-5.1)
[2022-02-07] MEDS: oxyCODONE HCL IR 5 MG TAB (IMMEDIATE RELEASE) PO PRN (11:28)
[2022-02-07] MEDS ORDERED: CHOLECALCIFEROL 1,000 UNITS 25 MCG TAB PO SCH (12:00)
[2022-02-07] MEDS ORDERED: VITAMIN B COMPLEX TAB PO SCH (12:00)
[2022-02-07] MEDS ORDERED: CEROVITE ADV FORMULA TAB PO SCH (12:00)
--- NOTE | 2022-02-07 13:08 | Progress Notes ---
DATE OF SERVICE: 02/07/2022 SUBJECTIVE: An 81-year-old white female postop day 1 from a right knee replacement. She is doing pr jabier well. Takes occasional oxycodone. Doing okay with that. Pain is controlled. Denies any chest pain or shortness of breath. Not feeling dizzy or lightheaded. Therapy went well this morning. OBJECTIVE: VITAL SIGNS: Temperature 36.5. Vital signs are stable. GENERAL: Shows a pleasant, elderly female. She is walking around the room with a walker, doing quit e well. LUNGS: Clear to auscultation. HEART: Regular rate and rhythm. ABDOMEN: Soft, nontender, nondistended. EXTREMITIES: Grossly neurovascularly intact except as follows: Examination of the right leg reveals the dressing to be clean, dry and intact. There is no drainage. She can dorsiflex and plantarflex her foot appropriately. She is neurologically intact. LABORATORIES: Hemoglobin 10.4. Hematocrit 31.3. Electrolytes are stable. ASSESSMENT: An 81-year-old white female postoperative day 1 from right knee replacement, doing prett y well. Pain is controlled. She is neurologically intact. PLAN: 1. DVT prophylaxis includes thigh-high TEDs, SCDs, and aspirin twice a day. 2. PT, OT, weightbear as tolerated. Right total knee protocol. 3. Pain control, doing okay with current pain regimen. 4. Disposition: She is planning to be discharged to home with some home health. She is hoping to g o home today. Job ID: [id number]
[2022-02-08] MEDS ORDERED: LOPERAMIDE LIQUID 120 ML BOTTLE PO SCH (09:00)
[2022-02-11] MEDS ORDERED: LEVOTHYROXINE SODIUM 50 MCG TABLET PO SCH (06:30)
== END 2022-02-07 15:56 | disposition home health service (06) ==
LOC: ASU 06:33 → 3E 06:33